=== PATIENT | female | born 1950 | race Two or more races ===

== ENCOUNTER 2024-09-11 13:05 | Outpatient (RCR) | payer MEDICARE, OTHER, SELFPAY | END 2024-09-15 23:59 | disposition home or self-care (01) | LOC: SCTC 13:05 | PROVIDERS: PCP Internal Medicine Hospice and Palliative Medicine; Referring Provider Internal Medicine; Visit Provider Nurse Practitioner Family | DX: C50.311 Malignant neoplasm of lower-inner quadrant of right female breast (principal); Z17.0 Estrogen receptor positive status [ER+]; Z17.21 Progesterone receptor positive status; Z17.32 Human epidermal growth factor receptor 2 negative status; Z90.13 Acquired absence of bilateral breasts and nipples; Z86.000 Personal history of in-situ neoplasm of breast; M81.0 Age-related osteoporosis without current pathological fracture; Z79.810 Long term (current) use of selective estrogen receptor modulators (SERMs); K57.92 Diverticulitis of intestine, part unspecified, without perforation or abscess without bleeding; K70.31 Alcoholic cirrhosis of liver with ascites; D64.9 Anemia, unspecified | CPT/HCPCS: 99212; G0463 ==

== ENCOUNTER 2024-10-16 09:25 | Outpatient (RCR) | payer MEDICARE, OTHER, SELFPAY ==
--- NOTE | 2024-10-16 10:34 | CTCFLWUP_ITS ---
[facility] Landa [facility] [address] [place], [place] [address] FOLLOW-UP NOTE Date: 10/16/2024 MR#: [id number] Name: LUZ ELENA FELIX : 1950 Dx: C50.311 Identification. 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 More advanced stage IIIa right breast CA oted HER2 negative receptor positive for ductal lobular feat ures and patient underwent bilateral mastectomy July 2020. Had 2 cycles of TC chemo which is discontinued due to side effects and patient received chest wall ra diation therapy on right side 5040 cGy with the was completed March 2021 at [facility] . PET scan 09/01/2023 stable non-hypermetabolic left adrenal mass L4 seemingly hypermetabolic. MRI [place] 11/05/2023 subacute fracture L4. Noted also on CT of 11/21/[address]-guided biopsy 01/16/2024 no malignancy identified in cytology sample.. Patient with osteoporosis on Prolia. As I see patient today patient is having more than usual pain requesting renewal of [place] along with methocarbamol. Examination of the patient reveals no sign recurrence in the right or left chest wall with moderate t enderness in L4 area. A#1. History of DCIS left breast 2007 lumpectomy postop radiation A#2. Stage IIIa right breast CA status post bilateral mastectomy chemo limited due to side effects a nd chest wall radiation therapy completed July 2020. A#3. Currently on [place] 5 and methocarbamol for pain symptoms. A#5. Imaging studies including PET scan 09/[address] scan 2023 reveals fracture L4 area; biopsy of L4 01/15/2023 reveals no malignancy on the cytology. A#5. Chronic pain increasing in L4 area and new PET scan will be ordered; last 1 done over a year a go. A#6. Patient sees Mary TATE in a couple weeks who has her on tamoxifen for rece ptor positive cancer and Prolia for osteoporosis. A#6. Renewed her pain meds and I will see her again in 3 months. Electronically signed by: Marquise Lala M.D. 10/16/2024 10:32 AM
== END 2024-10-16 23:59 | disposition home or self-care (01) ==
LOC: SCTC 09:25
PROVIDERS: PCP Internal Medicine Hospice and Palliative Medicine; Referring Provider Internal Medicine Hospice and Palliative Medicine; Visit Provider Radiology Therapeutic Radiology
DX: C50.311 Malignant neoplasm of lower-inner quadrant of right female breast (principal); Z17.0 Estrogen receptor positive status [ER+]; Z17.21 Progesterone receptor positive status; Z17.32 Human epidermal growth factor receptor 2 negative status; Z90.13 Acquired absence of bilateral breasts and nipples; Z86.000 Personal history of in-situ neoplasm of breast; Z92.3 Personal history of irradiation; G89.29 Other chronic pain; Z79.810 Long term (current) use of selective estrogen receptor modulators (SERMs); M81.0 Age-related osteoporosis without current pathological fracture
CPT/HCPCS: 99213; G0463

== ENCOUNTER → 2024-10-16 | Outpatient (CLI) | payer MEDICARE, OTHER, SELFPAY ==
[2024-10-16 11:23] LABS: Basophils % (Auto) 0 % (0-2.5); Eosinophils # (Auto) 0.2 Thou/mm3 (0.0-0.5); Eosinophils % (Auto) 4 % (0-10); Hematocrit 32.4 % (36.0-46.0); Hemoglobin 10.7 g/dL (12.0-16.0); Immature Granulocytes % (Auto) 0 % (0-0); Immature Granulocytes Auto 0.01 Thou/mm3 (0.00-0.00); Lymphocytes # (Auto) 1.4 Thou/mm3 (1.0-4.8); Lymphocytes % (Auto) 23 % (10-50); Mean Corpuscular Hemoglobin 34.9 pg (25.0-35.0); Mean Corpuscular Volume 106 fL (80-100); Monocytes % (Auto) 17 % (0-12); Neutrophils # (Auto) 3.4 Thou/mm3 (1.8-7.7); Neutrophils % (Auto) 56 % (37-80); Nucleated Red Blood Cell % 0 /100 WBC (0); Platelet Count 117 Thou/mm3 (140-440); RDW Standard Deviation 54.9 fL (36.4-46.3); Red Blood Count 3.07 Miln/mm3 (4.00-5.20)
[2024-10-16 11:45] LABS: Alanine Aminotransferase 17 U/L (10-49); Albumin, Serum 3.7 gm/dL (3.4-4.8); Albumin/Globulin Ratio 1.3 (1.2-2.2); Alkaline Phosphatase 157 U/L (46-116); Anion Gap 9 (7-16); Aspartate Amino Transferase 15 U/L (0-34); BUN/Creatinine Ratio 19 Ratio (12-20); Bilirubin,Total 1.2 mg/dL (0.3-1.2); Blood Urea Nitrogen 25 mg/dL (9-23); Calcium 9.5 mg/dL (8.3-10.6); Calcium (Corrected) 9.7 mg/dL (8.5-10.1); Carbon Dioxide 25.4 mMol/L (20.0-31.0); Chloride 107 mMol/L (98-107); Creatinine (Component) 1.3 mg/dL (0.6-1.3); Globulin 2.9 gm/dL (2.3-3.5); Glucose 89 mg/dL (74-106); Osmolality,Calculated 284 (275-295); Potassium 5.3 mMol/L (3.4-5.1); Sodium 141 mMol/L (136-145); Total Protein 6.6 gm/dL (5.7-8.2); eGFR 43 See Note
[2024-10-16 11:54] LABS: Ferritin 105 ng/mL (7.3-270.7); Total Iron Binding Capacity 292 mcg/dL (250-425)
[2024-10-16 12:03] LABS: CA 15-3 10.4 U/mL (<32.4); Carcinoembryonic Antigen 12.2 ng/mL (0.0-5.0); Folate 19.12 ng/mL (>5.38); Vitamin B12 567 pg/mL (211-911)
[2024-10-16 12:04] LABS: Iron 99 mcg/dL (50-170); Percent Iron Saturation 33 % (20-55); Unsaturated Iron Binding 193 (225-295)
== END | disposition home or self-care (01) ==
PROVIDERS: PCP Internal Medicine Hospice and Palliative Medicine; Referring Provider Nurse Practitioner Family; Visit Provider Nurse Practitioner Family
DX: C50.911 Malignant neoplasm of unspecified site of right female breast (principal); C50.311 Malignant neoplasm of lower-inner quadrant of right female breast
CPT/HCPCS: 36415; 80053; 82378; 82607; 82728; 82746; 83540; 83550; 85025; 86300

== ENCOUNTER 2024-10-22 13:06 | Outpatient (RCR) | payer MEDICARE, OTHER, SELFPAY | END 2024-11-16 23:59 | disposition home or self-care (01) | LOC: SCTC 13:06 | PROVIDERS: PCP Internal Medicine Hospice and Palliative Medicine; Referring Provider Internal Medicine Hospice and Palliative Medicine; Visit Provider Nurse Practitioner Family | DX: C50.311 Malignant neoplasm of lower-inner quadrant of right female breast (principal); Z17.0 Estrogen receptor positive status [ER+]; Z17.21 Progesterone receptor positive status; Z17.32 Human epidermal growth factor receptor 2 negative status; Z90.13 Acquired absence of bilateral breasts and nipples; Z86.000 Personal history of in-situ neoplasm of breast; Z92.3 Personal history of irradiation; Z92.21 Personal history of antineoplastic chemotherapy; Z79.810 Long term (current) use of selective estrogen receptor modulators (SERMs); M81.0 Age-related osteoporosis without current pathological fracture; G89.29 Other chronic pain; M54.50 Low back pain, unspecified; Z86.2 Personal history of diseases of the blood and blood-forming organs and certain disorders involving the immune mechanism; K57.90 Diverticulosis of intestine, part unspecified, without perforation or abscess without bleeding; K70.31 Alcoholic cirrhosis of liver with ascites | CPT/HCPCS: 99212; G0463 ==

== ENCOUNTER → 2024-11-15 | Outpatient (CLI) | payer MEDICARE, OTHER, SELFPAY ==
--- NOTE | 2024-11-15 13:15 | XR_ITS ---
EXAMINATION: PET/CT FUSION SKULL TO THIGH EXAM DATE AND TIME: November 15, 2024 1351 hours Comparison September 01, 2023 INDICATIONS: Diagnosis breast cancer, post treatment restaging CTDI:vol (mGy) 8.76 DLP: (mGycm) 691.28 PROCEDURE: 15.5 mCi FDG was administered intravenously To allow for distribution and uptake of radiotracer, the patient was allowed to rest quietly in a shielded room. Imaging was performed on an integrated 16-slice PET/CT scanner, with scanning from the skull base to the mid thigh. Serum blood glucose at the time of the injection was measured 93 mg/dL. CT scanning was performed without oral or intravenous contrast material. FINDINGS: Head and Neck: There is no ganesh hypermetabolism in the neck. The visualized portions of the brain are normal in appearance on CT. Chest: There is no ganesh hypermetabolism in the chest. There are no pulmonary nodules. Left mastectomy Abdomen and Pelvis: There is no ganesh hypermetabolism in retroperitoneal or pelvic chains. The spleen is normal in size and FDG avidity. Cirrhosis, liver nodular in contour Musculoskeletal: Marrow uptake is within normal range. Hypermetabolic L4 is not depicted on this study IMPRESSION: No interval metastatic disease
== END | disposition home or self-care (01) ==
PROVIDERS: PCP Internal Medicine Hospice and Palliative Medicine; Referring Provider Radiology Therapeutic Radiology; Visit Provider Radiology Therapeutic Radiology
DX: C50.911 Malignant neoplasm of unspecified site of right female breast (principal); C50.311 Malignant neoplasm of lower-inner quadrant of right female breast
CPT/HCPCS: 78815; A9552

== ENCOUNTER → 2024-11-29 | Outpatient (CLI) | payer MEDICARE, OTHER, SELFPAY ==
[2024-11-29 11:49] LABS: Basophils % (Auto) 0 % (0-2.5); Eosinophils # (Auto) 0.3 Thou/mm3 (0.0-0.5); Eosinophils % (Auto) 4 % (0-10); Hematocrit 29.8 % (36.0-46.0); Hemoglobin 9.8 g/dL (12.0-16.0); Immature Granulocytes % (Auto) 0 % (0-0); Immature Granulocytes Auto 0.02 Thou/mm3 (0.00-0.00); Lymphocytes # (Auto) 1.6 Thou/mm3 (1.0-4.8); Lymphocytes % (Auto) 24 % (10-50); Mean Corpuscular HGB Conc 32.9 g/dl (31.0-37.0); Mean Corpuscular Volume 104 fL (80-100); Monocytes % (Auto) 16 % (0-12); Neutrophils # (Auto) 3.7 Thou/mm3 (1.8-7.7); Neutrophils % (Auto) 55 % (37-80); Nucleated Red Blood Cell % 0 /100 WBC (0); Platelet Count 124 Thou/mm3 (140-440); RDW Standard Deviation 50.4 fL (36.4-46.3); Red Blood Count 2.88 Miln/mm3 (4.00-5.20); White Blood Count 6.6 Thou/mm3 (3.6-11.0)
[2024-11-29 12:12] LABS: Folate 14.77 ng/mL (>5.38); Vitamin B12 901 pg/mL (211-911)
[2024-11-29 12:19] LABS: Alanine Aminotransferase 19 U/L (10-49); Albumin, Serum 3.2 gm/dL (3.4-4.8); Albumin/Globulin Ratio 1.2 (1.2-2.2); Alkaline Phosphatase 139 U/L (46-116); Anion Gap 6 (7-16); Aspartate Amino Transferase 33 U/L (0-34); BUN/Creatinine Ratio 20 Ratio (12-20); Blood Urea Nitrogen 26 mg/dL (9-23); Calcium 8.8 mg/dL (8.3-10.6); Calcium (Corrected) 9.4 mg/dL (8.5-10.1); Carbon Dioxide 27.3 mMol/L (20.0-31.0); Chloride 109 mMol/L (98-107); Creatinine (Component) 1.3 mg/dL (0.6-1.3); Globulin 2.7 gm/dL (2.3-3.5); Glucose 111 mg/dL (74-106); Osmolality,Calculated 288 (275-295); Potassium 4.3 mMol/L (3.4-5.1); Sodium 142 mMol/L (136-145); Total Protein 5.9 gm/dL (5.7-8.2); eGFR 43 See Note
[2024-11-29 12:38] LABS: Ferritin 24 ng/mL (7.3-270.7); Iron 35 mcg/dL (50-170); Percent Iron Saturation 11 % (20-55); Total Iron Binding Capacity 298 mcg/dL (250-425); Unsaturated Iron Binding 263 (225-295)
== END | disposition home or self-care (01) ==
PROVIDERS: PCP Internal Medicine Hospice and Palliative Medicine; Referring Provider Nurse Practitioner Family; Visit Provider Nurse Practitioner Family
DX: C50.911 Malignant neoplasm of unspecified site of right female breast (principal); C50.311 Malignant neoplasm of lower-inner quadrant of right female breast
CPT/HCPCS: 36415; 80053; 82607; 82728; 82746; 83540; 83550; 85025

== ENCOUNTER 2024-12-05 13:28 | Outpatient (RCR) | payer MEDICARE, OTHER, SELFPAY | END 2024-12-14 23:59 | disposition home or self-care (01) | LOC: SCTC 13:28 | PROVIDERS: PCP Internal Medicine Hospice and Palliative Medicine; Referring Provider Internal Medicine Hospice and Palliative Medicine; Visit Provider Nurse Practitioner Family | DX: C50.311 Malignant neoplasm of lower-inner quadrant of right female breast (principal); Z17.0 Estrogen receptor positive status [ER+]; Z17.21 Progesterone receptor positive status; Z17.32 Human epidermal growth factor receptor 2 negative status; Z90.13 Acquired absence of bilateral breasts and nipples; Z79.810 Long term (current) use of selective estrogen receptor modulators (SERMs); Z92.3 Personal history of irradiation; Z92.21 Personal history of antineoplastic chemotherapy; D50.9 Iron deficiency anemia, unspecified; Z87.19 Personal history of other diseases of the digestive system; M81.0 Age-related osteoporosis without current pathological fracture; K70.30 Alcoholic cirrhosis of liver without ascites | CPT/HCPCS: 36415; 80053; 82607; 82728; 82746; 83540; 83550; 85025; 99212; G0463 ==

== ENCOUNTER 2025-01-24 08:50 | Outpatient (RCR) | payer MEDICARE, OTHER, SELFPAY ==
--- NOTE | 2025-01-24 10:08 | CTCFLWUP_ITS ---
Danny Landa [facility] [address] [place], [place] [address] FOLLOW-UP NOTE Date: 01/24/2025 MR#: [id number] Name: LUZ ELENA FELIX : 1950 Dx: 174.2 Upper-inner quadrant of breast Identification. Patient with history of stage 0 DCIS left breast 2007 status post lumpectomy and postop radiation Stage IIIa ([id number]) right breast 2019 status post bilateral mastectomy Limited chemo due to intolerance currently on tamoxifen. Also had radiation therapy to the right chest wall regional nodes 2020. Most recent PET 11/15/2024 no interval met disease. CT abdomen pelvis 11/21/2024 cirrhotic liver with GE splenic varices no ascites 3 mm left renal calculus. Patient has been experiencing lower GI bleeding. Followed by docent coordinator in [place] who reportedly performed the band ligation of the varices with correction of problem. As I examined patient today there is some tenderness in the left chest wall opposed to the right, but no sign of local recurrence. A#1 History of bilateral breast CA, DCIS left breast 2007 stage IIIa receptor positive HER2 negative right breast CA. bilateral mastectomy 2019. A#2. Limited chemo stopped due to intolerance Right chest wall and regional radiation No sign of recurrence on today's exam and on recent radiographs. Currently on tamoxifen. A#3. Recent GI bleeding related to varices underwent band ligation procedure [place] about 2 months ago correcting the problem according to patient.. A#4. Still having moderate pain in the chest wall region despite no recurrence, [place] 5 is needed used though sparingly which I will renew today. I will see her again in 3 months. Electronically signed by: Marquise Lala M.D. 01/24/2025 10:06 AM
== END 2025-02-13 23:59 | disposition home or self-care (01) ==
LOC: SCTC 08:50
PROVIDERS: PCP Internal Medicine Hospice and Palliative Medicine; Referring Provider Nurse Practitioner Family; Visit Provider Radiology Therapeutic Radiology
DX: C50.311 Malignant neoplasm of lower-inner quadrant of right female breast (principal); Z17.0 Estrogen receptor positive status [ER+]; Z17.21 Progesterone receptor positive status; Z17.32 Human epidermal growth factor receptor 2 negative status; Z79.810 Long term (current) use of selective estrogen receptor modulators (SERMs); Z86.000 Personal history of in-situ neoplasm of breast; Z90.13 Acquired absence of bilateral breasts and nipples; R07.89 Other chest pain; Z87.19 Personal history of other diseases of the digestive system
CPT/HCPCS: 99212; G0463

== ENCOUNTER 2025-02-20 10:04 | Outpatient (RCR) | payer MEDICARE, OTHER, SELFPAY | END 2025-03-16 23:59 | disposition home or self-care (01) | LOC: SCTC 10:04 | PROVIDERS: PCP Internal Medicine Hospice and Palliative Medicine; Referring Provider Internal Medicine Hospice and Palliative Medicine; Visit Provider Nurse Practitioner Family | DX: D64.9 Anemia, unspecified (principal); N18.9 Chronic kidney disease, unspecified; K70.31 Alcoholic cirrhosis of liver with ascites; C50.311 Malignant neoplasm of lower-inner quadrant of right female breast; Z17.0 Estrogen receptor positive status [ER+]; Z17.21 Progesterone receptor positive status; Z17.32 Human epidermal growth factor receptor 2 negative status; Z79.810 Long term (current) use of selective estrogen receptor modulators (SERMs); Z90.13 Acquired absence of bilateral breasts and nipples | CPT/HCPCS: 99212; G0463 ==

== ENCOUNTER 2025-03-26 13:45 | Outpatient (RCR) | payer MEDICARE, OTHER, SELFPAY | END 2025-04-15 23:59 | disposition home or self-care (01) | LOC: SCTC 13:45 | PROVIDERS: PCP Internal Medicine Hospice and Palliative Medicine; Referring Provider Internal Medicine Hospice and Palliative Medicine; Visit Provider Nurse Practitioner Family | DX: C50.311 Malignant neoplasm of lower-inner quadrant of right female breast (principal); Z17.0 Estrogen receptor positive status [ER+]; Z17.21 Progesterone receptor positive status; Z17.32 Human epidermal growth factor receptor 2 negative status; N18.9 Chronic kidney disease, unspecified; D63.1 Anemia in chronic kidney disease; K74.60 Unspecified cirrhosis of liver; I85.10 Secondary esophageal varices without bleeding; Z79.810 Long term (current) use of selective estrogen receptor modulators (SERMs); Z90.13 Acquired absence of bilateral breasts and nipples; Z92.21 Personal history of antineoplastic chemotherapy; M81.0 Age-related osteoporosis without current pathological fracture | CPT/HCPCS: 99212; G0463 ==

== ENCOUNTER → 2025-04-25 | Outpatient (CLI) | payer MEDICARE, OTHER, SELFPAY ==
[2025-04-25 12:43] LABS: Basophils # (Auto) 0.0 Thou/mm3 (0.0-0.2); Basophils % (Auto) 0 % (0-2.5); Eosinophils # (Auto) 0.3 Thou/mm3 (0.0-0.5); Eosinophils % (Auto) 4 % (0-10); Hematocrit 27.6 % (36.0-46.0); Hemoglobin 9.4 g/dL (12.0-16.0); Immature Granulocytes Auto 0.02 Thou/mm3 (0.00-0.00); Immature Reticulocyte Fraction 21.5 % (3.0-15.9); Lymphocytes # (Auto) 1.6 Thou/mm3 (1.0-4.8); Lymphocytes % (Auto) 21 % (10-50); Mean Corpuscular HGB Conc 34.1 g/dl (31.0-37.0); Mean Corpuscular Hemoglobin 32.4 pg (25.0-35.0); Mean Corpuscular Volume 95 fL (80-100); Monocytes # (Auto) 1.0 Thou/mm3 (0.0-0.8); Monocytes % (Auto) 14 % (0-12); Neutrophils # (Auto) 4.6 Thou/mm3 (1.8-7.7); Neutrophils % (Auto) 61 % (37-80); Nucleated Red Blood Cell # 0.00 Thou/mm3 (0.00-0.00); Nucleated Red Blood Cell % 0 /100 WBC (0); Platelet Count 130 Thou/mm3 (140-440); RDW Standard Deviation 60.2 fL (36.4-46.3); Red Blood Count 2.90 Miln/mm3 (4.00-5.20); Reticulocyte % (Auto) 3.1 % (0.5-1.5); Reticulocyte Absolute Auto 89.9 Biln/L (25.0-75.0); Reticulocyte Hgb Content 36.3 pg (28.0-35.0); White Blood Count 7.6 Thou/mm3 (3.6-11.0)
[2025-04-25 12:57] LABS: Alanine Aminotransferase 21 U/L (10-49); Albumin, Serum 3.3 gm/dL (3.4-4.8); Albumin/Globulin Ratio 1.1 (1.2-2.2); Alkaline Phosphatase 127 U/L (46-116); Anion Gap 12 (7-16); Aspartate Amino Transferase 41 U/L (0-34); BUN/Creatinine Ratio 11 Ratio (12-20); Bilirubin,Total 1.3 mg/dL (0.3-1.2); Blood Urea Nitrogen 35 mg/dL (9-23); Calcium 9.0 mg/dL (8.3-10.6); Calcium (Corrected) 9.6 mg/dL (8.5-10.1); Carbon Dioxide 21.6 mMol/L (20.0-31.0); Chloride 107 mMol/L (98-107); Creatinine (Component) 3.2 mg/dL (0.6-1.3); Globulin 3.0 gm/dL (2.3-3.5); Glucose 122 mg/dL (74-106); LDH (Lactate Dehydrogenase) 268 U/L (120-246); Osmolality,Calculated 290 (275-295); Potassium 3.8 mMol/L (3.4-5.1); Sodium 141 mMol/L (136-145); Total Protein 6.3 gm/dL (5.7-8.2); eGFR 15 See Note
[2025-04-25 12:58] LABS: Folate 10.49 ng/mL (>5.38); Vitamin B12 629 pg/mL (211-911)
[2025-04-25 12:59] LABS: Ferritin 150 ng/mL (7.3-270.7); Iron 94 mcg/dL (50-170); Percent Iron Saturation 42 % (20-55); Total Iron Binding Capacity 223 mcg/dL (250-425); Unsaturated Iron Binding 129 (225-295)
[2025-05-01 06:30] LABS: Erythropoietin (EPO)* 16.8 mIU/mL (2.6-18.5); Haptoglobin* 34 mg/dL (43-212)
== END | disposition home or self-care (01) ==
PROVIDERS: PCP Internal Medicine Hospice and Palliative Medicine; Referring Provider Nurse Practitioner Family; Visit Provider Nurse Practitioner Family
DX: C50.911 Malignant neoplasm of unspecified site of right female breast (principal); C50.311 Malignant neoplasm of lower-inner quadrant of right female breast
CPT/HCPCS: 36415; 80053; 82607; 82668; 82728; 82746; 83010; 83540; 83550; 83615; 85025; 85046

== ENCOUNTER 2025-05-06 10:39 | Outpatient (RCR) | payer MEDICARE, OTHER, SELFPAY ==
--- NOTE | 2025-04-25 11:22 | CTCFLWUP_ITS ---
Danny Landa [facility] [address] [place], [place] [address] FOLLOW-UP NOTE Date: 04/25/2025 MR#: [id number] Name: LUZ ELENA FELIX : 1950 Dx: C50.911 Malignant neoplasm of right female breast. Identification. History of stage 0 DCIS left breast 2007 status post lumpectomy postop radiation. Stage IIIa ([id number]) right breast CA receptor positive HER2 negative status post bilateral mastectomy 07/18/2020 Limited chemo due to intolerance placed on tamoxifen. Postop XRT completed 04/01/2021 Most recent PET 11/15/2024 no interval met disease. Comorbidities chronic kidney disease chronic liver disease anemia and chronic pain Imaging studies of fracture in L4 area biopsy showed no malignancy. Present see patient today she appears reasonably well. No sign of recurrence in her chest wall supra Clav axillary region. Patient has not asked for refill of her pain meds in recent weeks. Assessment. 1. History of stage 0 left breast status post lumpectomy postop radiation. 2. Stage IIIa right breast CA status post bilateral mastectomy, limited chemo due to intolerance Receptor positive HER2 negative currently on tamoxifen. 3. Chronic pain, but generally doing better these days with no recent need for pain meds. 4. Clinically and radiographically no sign of recurrence. Stable comorbidities of chronic kidney disease liver disease anemia 5. Will see her in 4 months for pain management. Has follow-up with Mary Loera NP in a few days. Electronically signed by: Marquise Lala M.D. 04/25/2025 11:20 AM
== END 2025-05-16 23:59 | disposition home or self-care (01) ==
LOC: SCTC 10:39
PROVIDERS: PCP Internal Medicine Hospice and Palliative Medicine; Referring Provider Internal Medicine Hospice and Palliative Medicine; Visit Provider Radiology Therapeutic Radiology
DX: C50.311 Malignant neoplasm of lower-inner quadrant of right female breast (principal); Z17.0 Estrogen receptor positive status [ER+]; Z17.21 Progesterone receptor positive status; Z17.32 Human epidermal growth factor receptor 2 negative status; Z90.13 Acquired absence of bilateral breasts and nipples; Z86.000 Personal history of in-situ neoplasm of breast; Z92.21 Personal history of antineoplastic chemotherapy; Z79.810 Long term (current) use of selective estrogen receptor modulators (SERMs); K74.60 Unspecified cirrhosis of liver; N18.9 Chronic kidney disease, unspecified; D64.9 Anemia, unspecified; G89.29 Other chronic pain
CPT/HCPCS: 36415; 80053; 82105; 82378; 82607; 82668; 82728; 82746; 83010; 83540; 83550; 83615; 85025; 85046; 86300; 99212; 99213; G0463

== ENCOUNTER → 2025-05-06 | Outpatient (CLI) | payer MEDICARE, OTHER, SELFPAY ==
[2025-05-06 09:11] LABS: Misc Send Out* See Sep Rpt
[2025-05-06 13:33] LABS: AFP Non-Pregnant 42.50 ng/mL (<8.10); CA 15-3 9.0 U/mL (<32.4); Carcinoembryonic Antigen 15.4 ng/mL (0.0-5.0)
== END | disposition home or self-care (01) ==
PROVIDERS: PCP Nurse Practitioner Family; Referring Provider Nurse Practitioner Family; Visit Provider Nurse Practitioner Family
DX: C50.911 Malignant neoplasm of unspecified site of right female breast (principal); C50.311 Malignant neoplasm of lower-inner quadrant of right female breast
CPT/HCPCS: 36415; 82105; 82378; 86300

== ENCOUNTER → 2025-06-04 | Outpatient (CLI) | payer MEDICARE, OTHER, SELFPAY ==
--- NOTE | 2025-06-04 14:00 | XR_ITS ---
Examination: CT chest, without intravenous contrast. CT abdomen, without intravenous contrast. CT pelvis, without intravenous contrast. 2-D sagittal and coronal reconstructions. 3-D reconstructions. Date and time of exam:October 02, 2025 1331 hours, comparison PET/CT scan November 15, 2024 INDICATIONS: Diagnosis malignant neoplasm unspecified site right female breast, history bilateral breast carcinoma bilateral mastectomies 2021 CTDI vol (mgy) 9.41 DLP (MGycm)601 Technique: Multiple CT images, 3.0 mm slice thickness, obtained chest, abdomen, pelvis, with the high-resolution 64 slice scanner.. Sagittal and coronal 2-D reconstructions are obtained. 3-D reconstructions Low dose protocols were performed. One or more of the following dose reduction techniques were used; automated exposure control, adjustment of the mA and/or KV according to patient size, use of iterative reconstruction technique. Findings: No thoracic aortic aneurysm dilatation Pulmonary artery segments are not enlarged. Heavy mitral valvular calcification. No paratracheal tracheobronchial or bronchopulmonary adenopathy. No pneumonia, pulmonary edema, pleural disease or noncalcified pulmonary nodules No axillary lymphadenopathy or chest wall masses Cirrhosis, liver nodular in contour Absent gallbladder Spleen not enlarged No pancreatic, 15 mm fat-containing adrenal nodule 3 mm nonobstructing left renal calculus No abdominal or pelvic lymphadenopathy Normal appendix No bowel obstruction Colonic diverticulosis Atrophic uterus Urinary bladder intact Severe osteopenia Advanced disc narrowing L3-L4 IMPRESSION: No mediastinal lymphadenopathy No pneumonia or pulmonary edema or pleural disease or pulmonary mass lesions Cirrhosis no hepatic metastases 15 mm fat-containing left adrenal nodule No abdominal or pelvic lymphadenopathy
== END | disposition home or self-care (01) ==
LOC: CCTX 13:15
PROVIDERS: PCP Internal Medicine Hospice and Palliative Medicine; Referring Provider Nurse Practitioner Family; Visit Provider Nurse Practitioner Family
DX: K74.60 Unspecified cirrhosis of liver (principal); E27.8 Other specified disorders of adrenal gland
CPT/HCPCS: 71250; 74176

== ENCOUNTER 2025-06-06 10:00 | Outpatient (RCR) | payer MEDICARE, OTHER, SELFPAY | END 2025-06-16 23:59 | disposition home or self-care (01) | LOC: SCTC 10:00 | PROVIDERS: PCP Internal Medicine Hospice and Palliative Medicine; Referring Provider Internal Medicine Hematology & Oncology; Visit Provider Nurse Practitioner Family | DX: C50.311 Malignant neoplasm of lower-inner quadrant of right female breast (principal); Z17.0 Estrogen receptor positive status [ER+]; Z17.21 Progesterone receptor positive status; Z17.32 Human epidermal growth factor receptor 2 negative status; Z90.13 Acquired absence of bilateral breasts and nipples; Z92.3 Personal history of irradiation; Z92.21 Personal history of antineoplastic chemotherapy; K74.60 Unspecified cirrhosis of liver; N18.9 Chronic kidney disease, unspecified; Z86.2 Personal history of diseases of the blood and blood-forming organs and certain disorders involving the immune mechanism; Z87.19 Personal history of other diseases of the digestive system; G89.29 Other chronic pain | CPT/HCPCS: 99212; G0463 ==

== ENCOUNTER → 2025-07-09 | Outpatient (CLI) | payer MEDICARE, OTHER, SELFPAY ==
[2025-07-08 12:58] LABS: Basophils # (Auto) 0.0 Thou/mm3 (0.0-0.2); Basophils % (Auto) 0 % (0-2.5); Eosinophils # (Auto) 0.4 Thou/mm3 (0.0-0.5); Eosinophils % (Auto) 6 % (0-10); Hematocrit 26.6 % (36.0-46.0); Hemoglobin 8.9 g/dL (12.0-16.0); Immature Granulocytes Auto 0.01 Thou/mm3 (0.00-0.00); Immature Reticulocyte Fraction 18.4 % (3.0-15.9); Lymphocytes # (Auto) 1.3 Thou/mm3 (1.0-4.8); Lymphocytes % (Auto) 22 % (10-50); Mean Corpuscular HGB Conc 33.5 g/dl (31.0-37.0); Mean Corpuscular Hemoglobin 33.0 pg (25.0-35.0); Mean Corpuscular Volume 99 fL (80-100); Monocytes # (Auto) 0.9 Thou/mm3 (0.0-0.8); Monocytes % (Auto) 16 % (0-12); Neutrophils # (Auto) 3.4 Thou/mm3 (1.8-7.7); Neutrophils % (Auto) 56 % (37-80); Nucleated Red Blood Cell # 0.00 Thou/mm3 (0.00-0.00); Nucleated Red Blood Cell % 0 /100 WBC (0); Platelet Count 116 Thou/mm3 (140-440); RDW Standard Deviation 51.5 fL (36.4-46.3); Red Blood Count 2.70 Miln/mm3 (4.00-5.20); Reticulocyte % (Auto) 2.2 % (0.5-1.5); Reticulocyte Absolute Auto 59.9 Biln/L (25.0-75.0); Reticulocyte Hgb Content 37.8 pg (28.0-35.0); White Blood Count 6.1 Thou/mm3 (3.6-11.0)
[2025-07-08 13:17] LABS: Alanine Aminotransferase 13 U/L (10-49); Albumin, Serum 3.2 gm/dL (3.4-4.8); Albumin/Globulin Ratio 1.2 (1.2-2.2); Alkaline Phosphatase 106 U/L (46-116); Anion Gap 10 (7-16); Aspartate Amino Transferase 32 U/L (0-34); BUN/Creatinine Ratio 11 Ratio (12-20); Bilirubin,Total 1.0 mg/dL (0.3-1.2); Blood Urea Nitrogen 33 mg/dL (9-23); Calcium 9.1 mg/dL (8.3-10.6); Calcium (Corrected) 9.7 mg/dL (8.5-10.1); Carbon Dioxide 20.3 mMol/L (20.0-31.0); Chloride 110 mMol/L (98-107); Creatinine (Component) 3.0 mg/dL (0.6-1.3); Globulin 2.6 gm/dL (2.3-3.5); Glucose 103 mg/dL (74-106); LDH (Lactate Dehydrogenase) 239 U/L (120-246); Osmolality,Calculated 286 (275-295); Potassium 4.3 mMol/L (3.4-5.1); Sodium 140 mMol/L (136-145); Total Protein 5.8 gm/dL (5.7-8.2); eGFR 16 See Note
[2025-07-08 13:21] LABS: Ferritin 60 ng/mL (7.3-270.7); Iron 94 mcg/dL (50-170); Percent Iron Saturation 35 % (20-55); Total Iron Binding Capacity 265 mcg/dL (250-425); Unsaturated Iron Binding 171 (225-295)
[2025-07-08 13:35] LABS: AFP Non-Pregnant 29.50 ng/mL (<8.10); CA 15-3 5.4 U/mL (<32.4); Carcinoembryonic Antigen 9.4 ng/mL (0.0-5.0); Folate 13.55 ng/mL (>5.38); Vitamin B12 570 pg/mL (211-911)
--- NOTE | 2025-07-09 13:30 | XR_ITS ---
Examination: MRI bilateral breasts without intravenous contrast Date and time: July 09, 2025 1333 hours, comparison CT chest abdomen pelvis June 04, 2025, PET/CT scan November 15, 2024 INDICATIONS: Diagnosis bilateral malignant breast neoplasm post bilateral mastectomy radiation therapy chemotherapy TECHNIQUE AND FINDINGS: Bilateral breast MRI images without intravenous contrast Bilateral mastectomies No chest wall or breast mass noted No axillary lymphadenopathy Minor edema in the left axilla IMPRESSION: BI-RADS Category 2: Benign findings No chest or axillary mass is noted
[2025-07-15 07:20] LABS: Haptoglobin* 32 mg/dL (43-212)
== END | disposition home or self-care (01) ==
LOC: SMRI 12:48
PROVIDERS: PCP Nurse Practitioner Family; Referring Provider Nurse Practitioner Family; Visit Provider Nurse Practitioner Family
DX: C50.911 Malignant neoplasm of unspecified site of right female breast (principal); C50.311 Malignant neoplasm of lower-inner quadrant of right female breast
CPT/HCPCS: 36415; 77047; 80053; 82105; 82378; 82607; 82728; 82746; 83010; 83540; 83550; 83615; 85025; 85046; 86300

== ENCOUNTER 2025-07-11 10:27 | Outpatient (RCR) | payer MEDICARE, OTHER, SELFPAY | END 2025-07-16 23:59 | disposition home or self-care (01) | LOC: SCTC 10:27 | PROVIDERS: Referring Provider Internal Medicine Hematology & Oncology; Visit Provider Internal Medicine Hematology & Oncology | DX: C50.311 Malignant neoplasm of lower-inner quadrant of right female breast (principal); K74.60 Unspecified cirrhosis of liver; Z17.0 Estrogen receptor positive status [ER+]; Z17.21 Progesterone receptor positive status; Z17.32 Human epidermal growth factor receptor 2 negative status; Z92.3 Personal history of irradiation; Z92.21 Personal history of antineoplastic chemotherapy; M81.0 Age-related osteoporosis without current pathological fracture; M85.80 Other specified disorders of bone density and structure, unspecified site; N18.9 Chronic kidney disease, unspecified; D64.9 Anemia, unspecified; D69.6 Thrombocytopenia, unspecified | CPT/HCPCS: 99212; G0463 ==

== ENCOUNTER 2025-08-28 10:58 | Outpatient (RCR) | payer MEDICARE, OTHER, SELFPAY ==
--- NOTE | 2025-08-28 13:07 | CTCFLWUP_ITS ---
Danny Landa [facility] [address] [place], [place] [address] FOLLOW-UP NOTE Date: 08/28/2025 MR#: [id number] Name: LUZ ELENA FELIX : 1950 Dx: C50.911 Malignant neoplasm of right female breast. Identification. History of stage 0 DCIS left breast 2007 status post lumpectomy postop radiation. Stage IIIa ([id number]) right breast CA receptor positive HER2 negative status post bilateral mastectomy 07/18/2020 Limited chemo due to intolerance and placed on tamoxifen. Postop XRT completed 04/01/2021. PET scan 11/15/2024 negative for recurrence or mets. CT chest abdomen pelvis 06/04/2025 revealed 15 mg fat containing left adrenal nodule with no sign of any malignancy or recurrence. MRI bilateral breasts 06/19/2025 benign findings no sign of recurrence Vini negative 08/09/2025 Still experiencing moderate chest discomfort both left and right taking [place] 5 every day or 2 along with OTC meds. Examination the left chest wall and the right chest wall shows mastectomy sites with radiation changes but no sign of gross recurrence. A#1. History of DCIS left breast 2007 stage IIIa right breast 2019 history of bilateral mastectomy and postop radiation therapy. Had limited chemo due to intolerance. A#2., Currently on Tamoxifen under Dr Rudolph?s direction. #3. no sign of recurrence on recent radiographs and Vini testing. #4. Chronic pain generally and specifically in chest wall area with no clinical sign of recurrence. #5. Takes OTC meds with occasional [place] 5 which manages her pain generally. #6. Cures website checked pain med renewed. Electronically signed by: Marquise Lala M.D. 08/28/2025 1:05 PM
== END 2025-09-15 23:59 | disposition home or self-care (01) ==
LOC: SCTC 10:58
PROVIDERS: Referring Provider Nurse Practitioner Family; Visit Provider Radiology Therapeutic Radiology
DX: C50.311 Malignant neoplasm of lower-inner quadrant of right female breast (principal); Z17.0 Estrogen receptor positive status [ER+]; Z17.21 Progesterone receptor positive status; Z17.32 Human epidermal growth factor receptor 2 negative status; Z79.810 Long term (current) use of selective estrogen receptor modulators (SERMs); Z92.3 Personal history of irradiation; Z90.13 Acquired absence of bilateral breasts and nipples; G89.29 Other chronic pain
CPT/HCPCS: 99213; G0463